=== PATIENT | male | born 1975 | race African-American/Black ===

== ENCOUNTER 2019-09-16 13:44 | Emergency (ER) | payer MEDICAID ==
[2019-09-16] MEDS ORDERED: CLONIDINE HCL 0.1 MG TABLET PO ONE ×2 (15:22→16:30)
[2019-09-16 15:44] LABS: ABSOLUTE NEUTROPHIL COUNT 8.56; HEMOGLOBIN 15.8 gm/dl (14.0-18.0); MEAN CELL VOLUME 79.5 fl (81-97); MEAN CORPUSCULAR HGB CONC 32.9 g/dl (32-36); MEAN PLATELET VOLUME 10.8 fl (7.4-10.4); PLATELET COUNT 258 K/uL (130-400); RED BLOOD COUNT 6.04 M/uL (4.40-5.70); RED CELL DISTRIBUTION WIDTH 15.9 % (11.5-14.5); WHITE BLOOD COUNT W/O DIFF 11.8 K/uL (4.2-12.2)
[2019-09-16 15:45] LABS: MEAN CORPUSCULAR HEMOGLOBIN 26.1 pg (27-33)
[2019-09-16 15:55] LABS: BLOOD UREA NITROGEN 11 mg/dL (6-20)
[2019-09-16 15:56] LABS: CREATININE 0.7 mg/dL (0.7-1.2); EST GLOMERULAR FILTRATION RATE > 60 mL/min
[2019-09-16 15:58] LABS: GLUCOSE,RANDOM 108 mg/dL (74-109)
[2019-09-16 16:06] LABS: ANISOCYTOSIS 1+; MICROCYTOSIS 1+; PLATELET ESTIMATE NORMAL (NORMAL)
[2019-09-16] MEDS ORDERED: LISINOPRIL 20 MG TABLET PO ONE (17:04)
[2019-09-16] MEDS ORDERED: HYDROCHLOROTHIAZIDE 25 MG TABLET PO ONE (17:05)
--- NOTE | 2019-09-16 17:13 | Emergency Department Record ---
History of Present Illness - General Chief Complaint: Headache Migraine Stated Complaint: HEADACHE Time Seen by Provider: 09/16/19 15:22 Source: Patient Mode of Arrival: Ambulatory Limitations: No limitations - History of Present Illness Initial Comments: pt has been out of his bp meds for 1 wk. now he has a rodrigez and his pressure is high Complaint: Headache Onset/Timin -: Days(s) Onset Description: Gradual Location: Frontal Consistency: Constant Improves With: Nothing Associated Symptoms: Nausea Treatments Prior to Arrival: Other Treatment Prior to Arrival Comment:: 400mg Aleve. - Related Data Home Medications Medication Instructions Recorded Confirmed Last Taken Amlodipine Besylate [Norvasc] 10 mg PO DAILY 09/16/19 09/16/19 Unknown Lisinopril/Hydrochlorothiazide 1 each PO DAILY 09/16/19 09/16/19 Unknown [Lisinopril-Hctz 20-25 mg Tab] Allergies Allergy/AdvReac Type Severity Reaction Status Date / Time egg AdvReac NAUSEA Verified 09/16/19 15:14 Travel Screening - Travel/Exposure Within Last 30 Days Have you traveled within the last 30 days?: No - Travel/Exposure Within Last Year Have you traveled outside the [place] in the last year?: No - Additonal Travel Details Have you been exposed to anyone with a communicable illness?: No - Travel Symptoms Symptom Screening: Headache Review of Systems Reviewed: No additional complaints except as noted below Constitutional: Reports: As per HPI. Denies: Chills, Fever, Malaise, Night sweats, Weakness, Weight change Eyes: Reports: As per HPI. Denies: Eye discharge, Eye pain, Photophobia, Vision change ENT: Reports: As per HPI. Denies: Congestion, Dental pain, Ear pain, Epistaxis, Hearing loss, Throat pain Respiratory: Reports: As per HPI. Denies: Cough, Dyspnea, Hemoptysis, Stridor, Wheezes Cardiovascular: Reports: As per HPI. Denies: Arrhythmia, Chest pain, Dyspnea on exertion, Edema, Murmurs, Orthopnea, Palpitations, Paroxysmal nocturnal dyspnea, Rheumatic Fever, Syncope Endocrine: Reports: As per HPI. Denies: Fatigue, Heat or cold intolerance, Polydipsia, Polyuria Gastrointestinal: Reports: As per HPI. Denies: Abdominal pain, Constipation, Diarrhea, Hematemesis, Hematochezia, Melena, Nausea, Vomiting Genitourinary: Reports: As per HPI. Denies: Dysuria, Frequency, Hematuria, Incontinence, Retention, Testicular pain, Testicular mass, Urgency Musculoskeletal: Reports: As per HPI. Denies: Arthralgia, Back pain, Gout, Joint swelling, Myalgia, Neck pain Skin: Reports: As per HPI. Denies: Bruising, Change in color, Change in hair/nails, Lesions, Pruritus, Rash Neurological: Reports: As per HPI. Denies: Abnormal gait, Confusion, Headache, Numbness, Paresthesias, Seizure, Tingling, Tremors, Vertigo, Weakness Psychiatric: Reports: As per HPI. Denies: Anxiety, Auditory hallucinations, Depression, Homicidal thoughts, Suicidal thoughts, Visual hallucinations Hematological/Lymphatic: Reports: As per HPI. Denies: Anemia, Blood Clots, Easy bleeding, Easy bruising, Swollen glands Past Medical History - SOCIAL HISTORY Smoking Status: Never smoker Alcohol Use: Occasional Drug Use: None - RESPIRATORY Hx Respiratory Disorders: Yes Hx Sleep Apnea: Yes Hx of CPAP: Yes - CARDIOVASCULAR Hx Cardio Disorders: Yes Hx Hypertension: Yes - NEURO Hx Neuro Disorders: No - GI Hx GI Disorders: Yes Hx Reflux: Yes - Hx Genitourinary Disorders: No - ENDOCRINE Hx Endocrine Disorders: No Hx Diabetes: (borderline) - MUSCULOSKELETAL Hx Musculoskeletal Disorders: No - PSYCH Hx Psych Problems: No - HEMATOLOGY/ONCOLOGY Hx Hematology/Oncology Disorders: No Family Medical History Any Significant Family History?: No Physical Exam - General General Appearance: Alert, Oriented x3, Cooperative, Mild distress - Head Head exam: Normal inspection - Eye Eye exam: Normal appearance, PERRL, EOMI Pupils: Normal accommodation - ENT ENT exam: Normal exam, Mucous membranes moist, Normal external ear exam, Normal orophraynx Ear exam: Normal external inspection. negative: External canal tenderness Nasal Exam: Normal inspection. negative: Discharge, Sinus tenderness Mouth exam: Normal external inspection, Tongue normal Teeth exam: Normal inspection. negative: Dental caries Throat exam: Normal inspection. negative: Tonsillar erythema, Tonsillar exudate - Neck Neck exam: Normal inspection, Full ROM. negative: Tenderness - Respiratory Respiratory exam: Normal lung sounds bilaterally. negative: Respiratory distress - Cardiovascular Cardiovascular Exam: Regular rate, Normal rhythm, Normal heart sounds - GI/Abdominal GI/Abdominal exam: Soft, Normal bowel sounds. negative: Tenderness - Rectal Rectal exam: Deferred - exam: Deferred - Extremities Extremities exam: Normal inspection, Full ROM, Normal capillary refill. negative: Tenderness - Back Back exam: Reports: Normal inspection, Full ROM. Denies: Muscle spasm, Rash noted, Tenderness - Neurological Neurological exam: Alert, CN II-XII intact, Normal gait, Oriented X3 - Psychiatric Psychiatric exam: Normal affect, Normal mood - Skin Skin exam: Dry, Intact, Normal color, Warm Course Vital Signs 09/16/19 09/16/19 09/16/19 14:58 15:31 16:25 Temperature 98.2 F Pulse Rate 79 Pulse Rate [ 77 Pulse Ox Probe] Respiratory 16 16 Rate Blood Pressure 241/141 Blood Pressure 243/147 [Left Arm] Pulse Ox 97 99 09/16/19 17:07 Temperature Pulse Rate Pulse Rate [ 77 Pulse Ox Probe] Respiratory 16 Rate Blood Pressure Blood Pressure 215/130 [Left Arm] Pulse Ox 99 - Reevaluation(s) Reevaluation #1: 09/16/19 18:56 pt feels better 09/16/19 18:57 bp has come down Medical Decision Making - Lab Data Result diagrams: 09/16/19 15:33 09/16/19 15:33 Lab Results 09/16/19 09/16/19 Range/Units 15:33 15:33 WBC 11.8 (4.2-12.2) K/uL RBC 6.04 H (4.40-5.70) M/uL Hgb 15.8 (14.0-18.0) gm/dl Hct 48.0 (42.0-52.0) % MCV 79.5 L (81-97) fl MCH 26.1 L (27-33) pg MCHC 32.9 (32-36) g/dl RDW 15.9 H (11.5-14.5) % Plt Count 258 (130-400) K/uL MPV 10.8 H (7.4-10.4) fl Neutrophils % 80.0 (47-80) % Eosinophils % Not Reportable Basophils % Not Reportable Absolute Neutrophils 8.56 Lymphocytes 8.0 L (16-45) % Monocytes 7.0 (0-9) % Platelet Estimate Normal (NORMAL) Anisocytosis 1+ Microcytosis 1+ Eosinophil Count 5.0 (0-6) % Sodium 138 (136-145) mmol/L Potassium 3.8 (3.4-4.5) mmol/L Chloride 99 (98-107) mmol/L Carbon Dioxide 27.0 (22-29) mmol/L Anion Gap 12.0 (7-16) BUN 11 (6-20) mg/dL Creatinine 0.7 (0.7-1.2) mg/dL Estimated GFR > 60 mL/min Random Glucose 108 (74-109) mg/dL Calcium 9.6 (8.6-10.0) mg/dL Disposition Disposition: Discharge Clinical Impression: Hypertension Qualifiers: Hypertension type: essential hypertension Qualified Code(s): I10 - Essential (primary) hypertension Disposition: Home, Self-Care Condition: (1) Good Instructions: Hypertension (ED) Additional Instructions: recheck blood pressure tomorrow. follow up with family doctor on [facility]. return sooner if worse. take blood pressure meds as prescribed Forms: Patient Portal Access Quality - Quality Measures Quality Measures: N/A - Blood Pressure Screening Does Patient Have Any of the Following: Active Dx of HTN Blood Pressure Classification: Hypertensive Reading Systolic Measurement: 241 Diastolic Measurement: 141 Screening for High Blood Pressure: Patient Exclusion, Hx of HTN [[id number]]
[2019-09-16] MEDS ORDERED: AMLODIPINE BESYLATE 5MG TAB PO SCH (17:15)
[2019-09-16] MEDS ORDERED: NITROGLYCERIN 0.4MG SL TABLET #25 BTL SL ONE (18:07)
[2019-09-16] MEDS ORDERED: MORPHINE SULFATE 5 MG/ML VIAL IVP ONE (18:15)
[2019-09-16] MEDS ORDERED: ONDANSETRON HCL IV 4 MG/2 ML VIAL IVP ONE (18:21)
== END 2019-09-16 19:23 | disposition home or self-care (01) ==
LOC: ER 13:44
DX: I10 Essential (primary) hypertension (principal); R51 Headache
CPT/HCPCS: 80048; 85027; 96374; 96375; 99284; J2405